=== PATIENT | female | born 1990 ===

== ENCOUNTER → 2021-04-06 | Outpatient (CLI) | payer SELFPAY ==
[2021-04-07 10:58] LABS: Candida species (DNA Probe) Positive (NEGATIVE); G. vaginalis (DNA Probe) Positive (NEGATIVE); T. vaginalis (DNA Probe) Negative (NEGATIVE)
== END | disposition home or self-care (01) ==
LOC: LAB SHORT 19:17
PROVIDERS: Family Medicine
DX: N76.0 Acute vaginitis (principal)
CPT/HCPCS: 87480; 87510; 87660

== ENCOUNTER 2022-03-21 06:02 | Day surgery (SDC) | payer OTHER ==
[~2022-03-21] VITALS: Ht 167.6 cm; Wt 76.4 kg
[~2022-03-21 06:02] MED LIST: FLUC150A PO; PRENATAL TABLE1 EAC9 PO; VITAMIN D310 MC4 PO
--- NOTE | 2022-03-21 10:12 | NUR ---
Patient up to Ambulate independently. Gait steady. Dressing to procedure site clean, dry, intact with no visible drainage, swelling, erythema or bruising noted. Lungs clear T/O to Auscultation. PT HAS NAUSEA, EMISIS X 2 IN POST OP. PT STATES SHE IS FINE WITH GOING HOME WITH THIS SHE HAS A VERY SENSATIVE STOMACHE. Discharged via wheelchair to private car for ride home.
== END 2022-03-21 23:59 | disposition home or self-care (01) ==
LOC: ORSCMMR 06:02 → ORD 07:30 → ORSCMMR 07:30
PROVIDERS: Surgery
PROC: 0FT44ZZ Resection of Gallbladder, Percutaneous Endoscopic Approach (ICD-10-PCS; principal; 2022-03-21 07:30)
DX: K80.40 Calculus of bile duct with cholecystitis, unspecified, without obstruction (principal); F41.9 Anxiety disorder, unspecified; F43.10 Post-traumatic stress disorder, unspecified; Z79.899 Other long term (current) drug therapy
CPT/HCPCS: 74300; 88304; A9270; C1729; J0690; J1100; J2250; J2370; J2405; J2704; J2765; J2795; J3010; J7120

== ENCOUNTER 2023-02-11 12:56 | Emergency (ER) | payer OTHER ==
[~2023-02-11] VITALS: Ht 167.6 cm; Wt 79.4 kg
[2023-02-11 13:14] VITALS: BP 119/79
[2023-02-11] MEDS ORDERED: CYCL10 PO (16:18)
[2023-02-11] MEDS ORDERED: Norco 5-325 Ta1 EACH PO (16:18)
[2023-02-11] MEDS ORDERED: Prednisone20 MG PO (16:18)
== END 2023-02-11 16:41 | disposition home or self-care (01) ==
LOC: ER 12:56
DX: S39.012A Strain of muscle, fascia and tendon of lower back, initial encounter (principal); X50.1XXA Overexertion from prolonged static or awkward postures, initial encounter; Z79.899 Other long term (current) drug therapy
CPT/HCPCS: 96372; 99283-25; A9270; J1885; J7512

== ENCOUNTER → 2024-01-02 | Outpatient (CLI) | payer OTHER ==
[~2024-01-02] MED LIST changes: +CYCL10 PO; +Norco 5-325 Ta1 EACH PO; +Prednisone20 MG PO
[2024-01-10 05:48] LABS: HPV HIGH RISK BY TMA Not Detected; HPV SOURCE Cervical/Vag
== END | disposition home or self-care (01) ==
LOC: LAB 18:05 → LAB SHORT 18:05
PROVIDERS: Family Medicine
DX: Z01.419 Encounter for gynecological examination (general) (routine) without abnormal findings (principal)
CPT/HCPCS: 87624; G0123

== ENCOUNTER 2024-08-17 14:03 | Emergency (ER) | payer OTHER ==
[~2024-08-17] VITALS: Ht 167.6 cm; Wt 83.9 kg
[2024-08-17 18:00] VITALS: BP 114/67
== END 2024-08-17 18:10 | disposition home or self-care (01) ==
LOC: ER 14:03
DX: G43.909 Migraine, unspecified, not intractable, without status migrainosus (principal); Z79.899 Other long term (current) drug therapy

== ENCOUNTER 2024-11-19 06:24 | Emergency (ER) | payer OTHER ==
[~2024-11-19] VITALS: Ht 167.6 cm; Wt 84.0 kg
[2024-11-19] MEDS ORDERED: Amitriptyline H10 MG PO (07:11)
[2024-11-19] MEDS ORDERED: NARA2.5 (07:12)
[2024-11-19] MEDS ORDERED: PROGESTERONE5000 GM PO (07:13)
[2024-11-19] MEDS ORDERED: UBRELVY50 MG PO (07:17)
[2024-11-19] MEDS ORDERED: Lidocaine 4% 1 Patch TOP ONE (08:10)
[2024-11-19 09:04] VITALS: BP 103/63
[2024-11-19] MEDS ORDERED: CYCL10 PO (09:18)
[2024-11-19] MEDS ORDERED: LIDOCAINE1 EAC1 TOP (09:18)
== END 2024-11-19 09:28 | disposition home or self-care (01) ==
LOC: ER 06:24
DX: M54.50 Low back pain, unspecified (principal); G89.29 Other chronic pain; Z79.899 Other long term (current) drug therapy
CPT/HCPCS: 99283; A9270